=== PATIENT | female | born 1965 | race Caucasian/White ===

== ENCOUNTER 2017-03-13 23:24 | Emergency (ER) | payer OTHER ==
[~2017-03-13] VITALS: Ht 160 cm; Wt 61.2 kg
[~2017-03-13 23:24] MED LIST: KEFLEX500 MG PO; PHENERGAN W/ DE30 ML PO; PREDNICOT10 MG PO; PROAIR HFA0.09 MG/AC INH; VICODIN HP 6601 TAB PO
== END 2017-03-14 00:14 | disposition home or self-care (01) ==
LOC: ED 23:24
DX: S90.32XA Contusion of left foot, initial encounter (principal); F17.200 Nicotine dependence, unspecified, uncomplicated; Z88.6 Allergy status to analgesic agent; W20.8XXA Other cause of strike by thrown, projected or falling object, initial encounter; Y93.89 Activity, other specified; Y92.89 Other specified places as the place of occurrence of the external cause; Y99.9 Unspecified external cause status

== ENCOUNTER 2017-04-16 07:57 | Emergency (ER) | payer OTHER ==
[~2017-04-16] VITALS: Wt 79.4 kg
[2017-04-16] MEDS ORDERED: AMOXICILLIN500 M2 PO (08:08)
[2017-04-16] MEDS ORDERED: CLINDAMYCIN HC300 MG PO (08:08)
== END 2017-04-16 08:12 | disposition home or self-care (01) ==
LOC: ED 07:57
DX: K04.7 Periapical abscess without sinus (principal); F17.200 Nicotine dependence, unspecified, uncomplicated; Z88.6 Allergy status to analgesic agent; Z88.8 Allergy status to other drugs, medicaments and biological substances

== ENCOUNTER 2017-09-21 08:11 | Emergency (ER) | payer OTHER ==
[~2017-09-21] VITALS: Ht 160 cm; Wt 61.2 kg
[~2017-09-21 08:11] MED LIST changes: +AMOXICILLIN500 M2 PO; +CLINDAMYCIN HC300 MG PO
[2017-09-21] MEDS ORDERED: PENICILLIN VK500 MG PO (08:48)
== END 2017-09-21 08:51 | disposition home or self-care (01) ==
LOC: ED 08:11
DX: K02.9 Dental caries, unspecified (principal); F17.200 Nicotine dependence, unspecified, uncomplicated; Z88.5 Allergy status to narcotic agent

== ENCOUNTER → 2018-01-04 | Outpatient (CLI) | payer OTHER ==
[~2018-01-04] MED LIST changes: +PENICILLIN VK500 MG PO
== END | disposition home or self-care (01) ==
LOC: US 10:45
DX: R19.7 Diarrhea, unspecified (principal); R31.9 Hematuria, unspecified; R10.9 Unspecified abdominal pain

== ENCOUNTER 2018-04-04 18:25 | Emergency (ER) | payer OTHER ==
[~2018-04-04] VITALS: Ht 160 cm; Wt 61.2 kg
[~2018-04-04 18:25] MED LIST changes: +SEPTDS PO; +VALIUM5 MG PO
[2018-04-04] MEDS ORDERED: CEFADROXIL500 M1 PO (18:53)
== END 2018-04-04 19:06 | disposition home or self-care (01) ==
LOC: ED 18:25
DX: S91.312A Laceration without foreign body, left foot, initial encounter (principal); F17.200 Nicotine dependence, unspecified, uncomplicated; Z88.6 Allergy status to analgesic agent; W25.XXXA Contact with sharp glass, initial encounter; Y93.89 Activity, other specified; Y92.89 Other specified places as the place of occurrence of the external cause; Y99.8 Other external cause status

== ENCOUNTER → 2019-05-24 | Outpatient (CLI) | payer OTHER ==
[~2019-05-24] MED LIST changes: +CEFADROXIL500 M1 PO
[2019-05-24 08:25] LABS: BASO # 0.1 10*3/uL (0.0-0.1); BASO % 0.6 % (0.0-1.0); EOS # 0.1 10*3/uL (0.0-0.4); HEMATOCRIT 42.4 % (37.0-47.0); HEMOGLOBIN 13.3 g/dl (12.0-16.0); LYMPH # 3.1 10*3/uL (1.3-4.4); LYMPH % 29.4 % (27.0-41.0); MEAN CELL VOLUME 94.4 fl (81.0-99.0); MEAN CORPUSCULAR HGB 29.6 pg (27.0-31.0); MEAN CORPUSCULAR HGB CONC 31.4 g/dl (33.0-37.0); MEAN PLATELET VOLUME 10.4 fl (9.6-12.3); MONO # 0.8 10*3/uL (0.1-1.0); MONO % 7.7 % (3.0-9.0); NEUT # 6.4 10*3/uL (2.3-7.9); NEUT % 60.9 % (47.0-73.0); PLATELET COUNT AUTOMATED 337 10*3/uL (130-400); RED BLOOD COUNT 4.49 10*6/uL (4.10-5.10); RED CELL DISTRI WIDTH 13.3 % (0-14.5); WHITE BLOOD COUNT 10.5 10*3/uL (4.8-10.8)
[2019-05-24 08:45] LABS: ALBUMIN 3.9 gm/dl (3.1-4.5); ALKALINE PHOSPHATASE 83 U/L (45-117); BUN 11 mg/dl (7-24); CHLORIDE 109 mmol/L (98-107); CREATININE 0.66 mg/dL (0.55-1.02); POTASSIUM 3.6 mmol/L (3.5-5.1); SGOT/AST 18 IU/L (3-35); SGPT/ALT 22 U/L (12-78); SODIUM 138 mmol/L (136-145); TOTAL PROTEIN 7.7 gm/dL (6.4-8.2)
[2019-05-24 08:51] LABS: CHOLESTEROL 249 mg/dL (<200); HDL CHOLESTEROL 31 mg/dl (40-60); TRIGLYCERIDES 474 mg/dl (<150)
== END | disposition home or self-care (01) ==
LOC: LAB 07:42
PROVIDERS: Family Medicine
DX: R10.11 Right upper quadrant pain (principal); R10.13 Epigastric pain; E66.3 Overweight

== ENCOUNTER → 2019-05-31 | Outpatient (CLI) | payer OTHER | END | disposition home or self-care (01) | LOC: US 09:22 | DX: K76.0 Fatty (change of) liver, not elsewhere classified (principal) ==

== ENCOUNTER → 2019-07-05 | Outpatient (CLI) | payer OTHER | END | disposition home or self-care (01) | LOC: RAD 07-01 08:00 | DX: R13.10 Dysphagia, unspecified (principal) ==

== ENCOUNTER 2019-09-02 16:25 | Emergency (ER) | payer OTHER ==
[2019-09-02] MEDS ORDERED: PENICILLIN VK500 MG PO (16:50)
== END 2019-09-02 16:59 | disposition home or self-care (01) ==
LOC: ED 16:25
DX: K04.7 Periapical abscess without sinus (principal); F17.200 Nicotine dependence, unspecified, uncomplicated; Z88.6 Allergy status to analgesic agent; Z88.8 Allergy status to other drugs, medicaments and biological substances; Z79.2 Long term (current) use of antibiotics; Z79.899 Other long term (current) drug therapy

== ENCOUNTER → 2020-07-07 | Outpatient (CLI) | payer OTHER ==
[2020-07-07 12:32] LABS: BASO # 0.1 10*3/uL (0.0-0.1); BASO % 0.5 % (0.0-1.0); EOS # 0.1 10*3/uL (0.0-0.4); EOS % 0.8 % (1.0-4.0); HEMATOCRIT 40.8 % (37.0-47.0); LYMPH # 2.9 10*3/uL (1.3-4.4); MEAN CELL VOLUME 92.5 fl (81.0-99.0); MEAN CORPUSCULAR HGB CONC 31.4 g/dl (33.0-37.0); MEAN PLATELET VOLUME 10.3 fl (9.6-12.3); MONO # 0.6 10*3/uL (0.1-1.0); NEUT # 6.3 10*3/uL (2.3-7.9); NEUT % 63.4 % (47.0-73.0); PLATELET COUNT AUTOMATED 375 10*3/uL (130-400); RED BLOOD COUNT 4.41 10*6/uL (4.10-5.10); RED CELL DISTRI WIDTH 13.3 % (0-14.5)
[2020-07-07 13:00] LABS: ALBUMIN 3.8 gm/dl (3.1-4.5); ALKALINE PHOSPHATASE 85 U/L (45-117); BUN 12 mg/dl (7-24); CHLORIDE 109 mmol/L (98-107); CHOLESTEROL 246 mg/dL (<200); CREATININE 0.72 mg/dL (0.55-1.02); HDL CHOLESTEROL 28 mg/dl (40-60); POTASSIUM 3.8 mmol/L (3.5-5.1); SGOT/AST 10 IU/L (3-35); SGPT/ALT 21 U/L (12-78); SODIUM 139 mmol/L (136-145); TOTAL PROTEIN 7.7 gm/dL (6.4-8.2); TRIGLYCERIDES 434 mg/dl (<150)
[2020-07-07 13:20] LABS: FERRITIN 39.3 ng/mL (10.0-291.0); VITAMIN D, 25-HYDROXY 45.2 ng/mL (30-100)
[2020-07-08 09:10] LABS: PROGESTERONE 0.1 ng/mL (.)
== END | disposition home or self-care (01) ==
LOC: LAB 11:56
PROVIDERS: Obstetrics & Gynecology; Student in an Organized Health Care Education/Training Program; ATTEND Registered Nurse Critical Care Medicine
DX: E55.9 Vitamin D deficiency, unspecified (principal); R73.09 Other abnormal glucose; R00.0 Tachycardia, unspecified; R53.83 Other fatigue; Z79.899 Other long term (current) drug therapy

== ENCOUNTER → 2020-10-13 | Outpatient (CLI) | payer OTHER | END | disposition home or self-care (01) | LOC: CARD 12:00 | PROVIDERS: ATTEND Family Medicine | DX: I05.9 Rheumatic mitral valve disease, unspecified (principal) ==

== ENCOUNTER → 2021-11-10 | Outpatient (CLI) | payer OTHER | END | disposition home or self-care (01) | LOC: RAD 11:31 | PROVIDERS: ATTEND Nurse Practitioner Gerontology | DX: M25.531 Pain in right wrist (principal); M25.532 Pain in left wrist ==